=== PATIENT | male | born 1990 | race Caucasian/White ===

== ENCOUNTER 2023-11-25 09:46 | Emergency (ER) | payer OTHER ==
[~2023-11-25] VITALS: Ht 188 cm; Wt 150.1 kg
[2023-11-25] MEDS ORDERED: SODIUM CHLORIDE 0.9% 1,000 ML IV PRN (11:45)
[2023-11-25] MEDS ORDERED: KETOROLAC TROMETHAMINE 30 MG/ML VIAL IV ONE (11:45)
[2023-11-25] MEDS ORDERED: KETOROLAC TROME10 MG PO (14:03)
[2023-11-25 14:11] VITALS: BP 139/72
== END 2023-11-25 13:45 | disposition home or self-care (01) ==
LOC: ED 09:46
DX: R51.9 Headache, unspecified (principal)
CPT/HCPCS: 70450; 96374; 99284-25; J1885; J7030